=== PATIENT | female | born 1975 | race Caucasian/White ===

== ENCOUNTER → 2021-06-27 09:00 | Outpatient (CLI) | payer BC, SELFPAY | PROVIDERS: Referring Provider Internal Medicine; Visit Provider Internal Medicine | DX: Z23 Encounter for immunization (principal) | CPT/HCPCS: 90471; 90686 ==

== ENCOUNTER → 2022-04-26 07:40 | Outpatient (CLI) | payer BC, SELFPAY ==
--- NOTE | 2022-04-26 07:43 | DI.MG.S_ITS ---
BILATERAL DIGITAL SCREENING MAMMOGRAM 3D/2D WITH CAD WITH AUGMENTATION: 04/26/2022 CLINICAL: Routine screening. Family history of breast cancer. Comparison is made to exams dated: 10/20/2020 mammogram, 07/28/2019 mammogram, and 07/30/2018 mammogram - out side. Both breasts are heterogeneously dense, which may obscure small masses (category c / 51-75% glandular tissue). Current study was also evaluated with a Computer Aided Detection (CAD) system. Bilateral breast implants are stable. No significant masses, calcifications, or other findings are seen in either breast. There has been no significant interval change. IMPRESSION: NEGATIVE There is no mammographic evidence of malignancy. A 1 year screening mammogram is recommended. Based on the Tyrer Cuzick model (a risk assessment model) the patient's lifetime risk is 13.6% and her 10 year risk is 2.9%. According to the ACR, ACS, and NCCN guidelines, an annual breast MRI exam along with mammogram is recommended if the patient's lifetime risk is 20% or greater. This exam was interpreted at Station ID: [id number]. NOTE: For mammograms, a report in lay terms will be sent to the patient. Approximately 15% of breast malignancies will not be visualized mammographically. In the management of a palpable breast mass, a negative mammogram must not discourage biopsy of a clinically suspicious lesion. Electronically Signed By: Aracelis washington/sonny:04/26/2022 08:52:43 letter sent: Normal Exam ACR BI-RADS Category 1: Negative 3341F
== END ==
PROVIDERS: PCP Physician Assistant; Referring Provider Physician Assistant; Visit Provider Physician Assistant
DX: Z12.31 Encounter for screening mammogram for malignant neoplasm of breast (principal); Z80.3 Family history of malignant neoplasm of breast
CPT/HCPCS: 77063; 77067

== ENCOUNTER → 2022-06-08 14:52 | Outpatient (CLI) | payer OTHER, SELFPAY | PROVIDERS: PCP Family Medicine; Referring Provider Internal Medicine; Visit Provider Internal Medicine | DX: Z23 Encounter for immunization (principal) | CPT/HCPCS: 90471; 90686 ==

== ENCOUNTER → 2022-07-05 08:06 | Outpatient (CLI) | payer BC, SELFPAY ==
[2022-07-05 09:43] LABS: Add Manual Diff / Slide Review NO; Basophils Absolute Auto 0 /uL (0-100); Basophils Percent Auto 0.3 % (0-2); Eosinophils Absolute Auto 0 /uL (0-450); Eosinophils Percent Auto 0.5 % (2-4); Hematocrit 37.7 % (36-46); Hemoglobin 12.8 g/dL (12.0-16.0); Lymphocytes Absolute Auto 1400 /uL (1100-4500); Lymphocytes Percent Auto 15.3 % (25-40); Mean Corpuscular HGB Conc 33.9 % (30-36); Mean Corpuscular Hemoglobin 32.2 PG (26-34); Mean Corpuscular Volume 95.1 fL (80-100); Monocytes Absolute Auto 500 /uL (0-900); Monocytes Percent Auto 5.4 % (3-14); Neutrophils Absolute Auto 7300 /uL (1500-7000); Neutrophils Percent Auto 78.5 % (50-75); Platelet Count 294 X10^3/uL (150-400); Red Blood Cell Count 3.96 X10^6/uL (4.0-5.2); Red Cell Distribution Width 12.5 % (11.6-14.8); White Blood Cell Count 9.2 X10^3/uL (4.5-11.0)
[2022-07-05 09:53] LABS: Hemoglobin A1C% w Est Avg Glu 4.8 % (4.0-6.0)
[2022-07-05 10:21] LABS: Alanine Aminotransferase 22 IU/L (<35); Albumin 4.6 g/dL (3.5-5.0); Albumin Globulin Ratio 1.6 (1.0-2.8); Alkaline Phosphatase 57 U/L (38-126); Aspartate Aminotransferase 26 IU/L (14-36); BUN Creatinine Ratio 16.9 (6-22); Bilirubin Total 1.2 mg/dL (0.2-1.3); Blood Urea Nitrogen 13 mg/dL (7-17); Carbon Dioxide 22 mmol/L (22-32); Chloride 100 mmol/L (98-107); Cholesterol 240 mg/dL (140-199); Estimated Glomerular Filt Rate > 60 mL/min (>60); Globulin 2.8 g/dL (1.7-4.1); Glucose 90 mg/dL (70-100); HDL Cholesterol 69 mg/dL (40-60); HEMOLYSIS < 15 (0-50); LDL Cholesterol Calculated 146 mg/dL (<100); Potassium 4.4 mmol/L (3.4-5.1); Sodium 135 mmol/L (137-145); Total Protein 7.4 g/dL (6.3-8.2); Triglycerides 126 mg/dL (35-150)
[2022-07-05 10:26] LABS: Vitamin D 25 Hydroxy (D3) 35.3 ng/mL (30.0-100.0)
[2022-07-05 11:57] LABS: Appearance Urine UA CLEAR; Bilirubin Urine UA NEGATIVE (NEGATIVE); Color Urine UA YELLOW; Glucose Urine UA NEGATIVE (Negative); Ketones Urine UA NEGATIVE (NEGATIVE); Leukocyte Esterase Urine UA NEGATIVE (NEGATIVE); Nitrite Urine UA NEGATIVE (Negative); Occult Blood Urine UA NEGATIVE (Negative); Protein Urine UA NEGATIVE (Negative); Specific Gravity Urine UA <=1.005 (1.000-1.035); Urobilinogen Urine UA 0.2 E.U./dL (0.2)
[2022-07-05 12:04] LABS: Bacteria Urine None Seen; Culture Indicated Urine Cult Not Indicated; RBC Urine None Seen (0-5/HPF); Urine Comments Microscopic Normal; WBC Urine None Seen (0-5/HPF)
== END ==
PROVIDERS: PCP Family Medicine; Referring Provider Family Medicine; Visit Provider Family Medicine
DX: E78.49 Other hyperlipidemia (principal); R73.01 Impaired fasting glucose; E56.9 Vitamin deficiency, unspecified; N32.81 Overactive bladder; R35.0 Frequency of micturition; L40.9 Psoriasis, unspecified
CPT/HCPCS: 36415; 80053; 80061; 81001; 82306; 83036; 85025

== ENCOUNTER → 2024-02-26 07:35 | Outpatient (CLI) | payer OTHER, SELFPAY ==
[2024-02-26 08:40] LABS: Add Manual Diff / Slide Review NO; Basophils Absolute Auto 0 /uL (0-100); Basophils Percent Auto 0.7 % (0-2); Eosinophils Absolute Auto 200 /uL (0-450); Eosinophils Percent Auto 2.7 % (2-4); Hematocrit 37.8 % (36-46); Lymphocytes Absolute Auto 2100 /uL (1100-4500); Lymphocytes Percent Auto 34.7 % (25-40); Mean Corpuscular HGB Conc 34.4 % (30-36); Mean Corpuscular Hemoglobin 32.6 PG (26-34); Mean Corpuscular Volume 94.8 fL (80-100); Monocytes Absolute Auto 500 /uL (0-900); Monocytes Percent Auto 7.7 % (3-14); Neutrophils Absolute Auto 3300 /uL (1500-7000); Neutrophils Percent Auto 54.2 % (50-75); Platelet Count 279 X10^3/uL (150-400); Red Blood Cell Count 3.99 X10^6/uL (4.0-5.2); Red Cell Distribution Width 12.7 % (11.6-14.8)
[2024-02-26 09:23] LABS: HEMOLYSIS < 15 (0-50); Iron 139 ug/dL (37-170)
[2024-02-26 09:28] LABS: Alanine Aminotransferase 28 IU/L (<35); Albumin 4.3 g/dL (3.5-5.0); Albumin Globulin Ratio 1.6 (1.0-2.8); Alkaline Phosphatase 55 U/L (38-126); Aspartate Aminotransferase 30 IU/L (14-36); BUN Creatinine Ratio 21.3 (6-22); Bilirubin Total 0.9 mg/dL (0.2-1.3); Blood Urea Nitrogen 16 mg/dL (7-17); Calcium 9.3 mg/dL (8.4-10.2); Carbon Dioxide 24 mmol/L (22-32); Chloride 107 mmol/L (98-107); Cholesterol 251 mg/dL (140-199); Estimated Glomerular Filt Rate > 60 mL/min (>60); Globulin 2.7 g/dL (1.7-4.1); Glucose 106 mg/dL (70-100); HDL Cholesterol 83 mg/dL (40-60); HEMOLYSIS < 15 (0-50); LDL Cholesterol Calculated 152 mg/dL (<100); Potassium 4.4 mmol/L (3.4-5.1); Sodium 138 mmol/L (137-145); Triglycerides 80 mg/dL (35-150)
[2024-02-26 09:34] LABS: Percent Iron Saturation 51 % (15-50); Total Iron Binding Capacity 275 ug/dL (265-497); Transferrin 232 mg/dL (206-381)
[2024-02-26 09:56] LABS: TSH w/ Reflex to FT4 1.39 uIU/mL (0.47-4.68)
[2024-02-26 10:00] LABS: Ferritin 187 ng/mL (11-264)
== END ==
PROVIDERS: PCP Family Medicine; Referring Provider Family Medicine; Visit Provider Family Medicine
DX: Z13.1 Encounter for screening for diabetes mellitus (principal); R53.83 Other fatigue; E78.5 Hyperlipidemia, unspecified
CPT/HCPCS: 36415; 80053; 80061; 82728; 83036; 83540; 83550; 84443; 85025

== ENCOUNTER 2024-05-19 10:42 | Day surgery (SDC) | payer OTHER, SELFPAY ==
--- NOTE | 2024-05-19 | PATH_ITS ---
[facility] Accession Number: [id number] No. of containers..02 Tissue . 01 Material submitted: . PART A: esophagus, E-G Junction - GE JUNCTION PART B: esophagus - RANDOM ESOPHAGEAL . 01 Diagnosis: A. GASTROESOPHAGEAL JUNCTION, BIOPSY: Squamocolumnar junctional mucosa with no significant diagnostic abnormality. Negative for intestinal metaplasia. Negative for dysplasia, or malignancy. Additional deeper levels were examined. - B. ESOPHAGUS, RANDOM, BIOPSY: Cardio-oxyntic gastric mucosa and superficial squamous mucosa with no significant diagnostic abnormality. Negative for intestinal metaplasia. Negative for dysplasia, or malignancy. [facility] 05/22/2024 1451 Local . 01 Electronically signed: . Елена Negron MD, Pathologist NPI- [id number] . 01 Gross description: . A. Received in formalin with two patient identifiers and GE junction, is a single blake soft tissue fragment, 0.3 cm in greatest dimension. Submitted in A1. B. Received in formalin with two patient identifiers and random esophageal biopsies, are three blake soft tissue fragments, 0.2 to 0.3 cm in greatest dimension. Submitted in B1. ([id number]) /MRV 05/20/2024 1045 Local . 01 Pathologist provided ICD-10: Z12.11, K20.90, R07.9 . 01 CPT . 442038, 181528 Specimen Comment: A courtesy copy of this report has been sent to [phone] Performed at: [address] [facility] [address], [place], [place] [id number] MD Gus Price MD Phone: [phone]
[2024-05-19 11:16] VITALS: BP 127/75; PULSE 96; RESP 16; TEMP 36.9; O2SAT 99
--- NOTE | 2024-05-19 11:29 | EKG_ITS ---
[address] [address] [address] [address] Test Date: 2024-05-19 Pat Name: Arleth Felton Department: Room: Gender: Female Float Phlebotomist: Danie WEAVER : 1975 Requested By: Order Number: [id number] [place] MD: Edgardo Nguyen Measurements Intervals [place] Rate: 95 P: 57 MA: 124 QRS: 56 QRSD: 84 T: 37 QT: 368 QTc: 462 Interpretive Statements Normal sinus rhythm Electronically Signed On 05-21-2024 19:50:14 PDT by Edgardo Nguyen
--- NOTE | 2024-05-19 11:43 | PM.HP.1 ---
History of Present Illness History of Present Illness Date Patient Seen: 05/19/24 Time Patient Seen: 12:45 Chief complaint: EGD & Colonoscopy w/poss bx's Narrative: 49-year-old woman here for screening colonoscopy and diagnostic upper endoscopy. No previous colonoscopy. No family history of colon cancer. She describes a dull discomfort in her chest perhaps reflux. No esophageal dysphagia. No abdominal pain hematochezia melena. COUNTS INCLUDE 234 BEDS AT THE [facility] Medical History (Updated 02/10/24 @ 10:57 by Eileen Muniz MD) Pelvic pressure in female Intermittent chest pain Hyperlipidemia Fatigue Social History Smoking Status: Never smoker alcohol intake: current Meds Home Medications and Allergies Home Medications Medication Instructions Recorded Confirmed Type valacyclovir 1 gram tablet 1,000 mg PO DAILY outbreaks #90 03/30/24 05/19/24 Rx tabs multivitamin 1 tab PO DAILY 05/19/24 05/19/24 History Allergies Allergy/AdvReac Type Severity Reaction Status Date / Time amoxicillin AdvReac Intermediate Hives Verified 05/19/24 11:27 clavulanic acid AdvReac Intermediate Hives Verified 05/19/24 11:27 [From Augmentin] codeine AdvReac Intermediate Vomiting Verified 05/19/24 11:27 latex AdvReac Intermediate Rash Verified 05/19/24 11:27 Exam Vital Signs (past 8 hours): - 05/19/24 11:16 Temperature 98.4 F Pulse Rate 96 H Respiratory Rate 16 Blood Pressure 127/75 Pulse Oximetry 99 Oxygen Delivery Method Room Air Oxygen Delivery Method Room Air Narrative Exam Narrative: General adult woman alert oriented no acute distress Chest nonlabored respiration Extremities warm well perfused Assessment & Plan Assessment and plan (1) Intermittent chest pain: Status: Acute Assessment & Plan narrative: [age] year woman with intermittent chest pain here for screening colonoscopy and diagnostic esophagogastroduodenoscopy. Technical details were discussed. Risks, benefits, alternatives explained. Risks including but not limited to myocardial infarction, aspiration, bleeding, pain, missed lesion, incomplete examination, need for further radiographic studies, intestinal injury, and need for major abdominal surgery were discussed. All questions were answered to their satisfaction, and they are in agreement with this plan. Time-Based Coding :: [TOTAL MINUTES] spent with patient and on the chart (including review of chart, obtaining history, exam, reviewing outside data, placing orders, documenting exam and treatment plan, and counseling patient) on [DATE].
[2024-05-19] MEDS: LACTATED RINGERS 1,000 ML 42 ML IV (11:44)
--- NOTE | 2024-05-19 12:49 | PM.OP.EC ---
Operative Date/Time/Diagnoses Date of procedure: 05/19/24 Time of procedure: 12:49 Pre-op diagnosis: Intermittent chest pain Colorectal screening Procedure & Clinicians Study performed: Diagnostic Esophagogastroduodenoscopy and screening colonoscopy Same procedure as scheduled: Yes Indications: Intermittent chest pain Screening Surgeon: Jose Canada Procedure Notes Procedure in detail: The history and physical was performed/updated and the patient is ASA class is 2. The procedure was discussed in detail with the patient. Potential risks complications including infection, bleeding, missed diagnosis, perforation, need for surgery, and were explained. Their questions were answered and informed consent was obtained. Patient placed in left lateral decubitus position. Time out was performed. Procedural sedation was administered by Anesthesia. A bite block was placed. the scope was inserted into the mouth and advanced through the esophagus and into the stomach. the pylorus was intubated and the duodenum was examined to the 2nd portion.. The scope was retroflexed within the stomach. The stomach was then decompressed and scope pulled back to the GE junction. The scope was then removed Examination began with a thorough inspection of the perianal area there was no evidence of fissures, fistulae, external hemorrhoids or cutaneous malignancy. The colonoscopy scope was then placed into the anal canal and was advanced to the cecum, which was identified by the ileocecal valve, the appendiceal orifice and the confluence of the taenia. The scope was then slowly withdrawn examining colon thoroughly in all directions, irrigating it of any residual stool. FINDINGS -moderate esophagitis with friable mucosa. Random esophageal biopsies performed with forceps. The GE junction was biopsied with forceps no florian Barretts esophagus. -Unremarkable colonoscopy. Normal healthy colonic mucosa without mass or polyps. The patient tolerated the procedure well. They will be discharged once criteria are met. The prep was of good/excellent quality. The withdrawl time was 7 minutes. Specimen(s): other (Random esophageal biopsy, GE junction.) Impression: Esophagitis Normal colonoscopy Post-procedure Recommendations: Colonscopy in 10 years and Start medication(s) (One month trial of omeprazole) Disposition: same day surgery
[2024-05-19 13:16] VITALS: BP 130/48; PULSE 90; RESP 12; TEMP 36.3; O2SAT 98
[2024-05-19 13:21] VITALS: BP 116/67; PULSE 85; RESP 12; TEMP 36.4; O2SAT 97
== END 2024-05-19 13:37 | disposition home or self-care (01) ==
PROVIDERS: PCP Family Medicine; Referring Provider Surgery; Visit Provider Surgery
PROC: 0DJ08ZZ Inspection of Upper Intestinal Tract, Via Natural or Artificial Opening Endoscopic (ICD-10-PCS; CPT 43235; principal; 2024-05-19 12:30)
PROC: 0DJD8ZZ Inspection of Lower Intestinal Tract, Via Natural or Artificial Opening Endoscopic (ICD-10-PCS; CPT 45378; 2024-05-19 12:30)
DX: Z12.11 Encounter for screening for malignant neoplasm of colon (principal); R07.9 Chest pain, unspecified; K20.90 Esophagitis, unspecified without bleeding
CPT/HCPCS: 45378; 43239; 93005; J2704